=== PATIENT | male | born 1970 | race Hispanic/Latino ===

== ENCOUNTER → 2018-09-01 | Outpatient (CLI) | payer OTHER | END | disposition home or self-care (01) | LOC: RAH 10:59 | PROVIDERS: ATTEND Nurse Practitioner Adult Health | DX: M50.31 Other cervical disc degeneration, high cervical region (principal); M48.02 Spinal stenosis, cervical region | CPT/HCPCS: 72141 ==

== ENCOUNTER → 2018-10-30 | Outpatient (CLI) | payer OTHER ==
[~2018-10-30] MED LIST: LISI10TA7 PO
== END | disposition home or self-care (01) ==
LOC: RAH 08:53
PROVIDERS: ATTEND Neurological Surgery
DX: M43.22 Fusion of spine, cervical region (principal)
CPT/HCPCS: 72040

== ENCOUNTER 2018-11-01 10:34 | Emergency (ER) | payer OTHER ==
[2018-11-01 10:57] LABS: BASOPHILS % (AUTO) 2.5 % (0.0-5.0); HEMATOCRIT 36.7 % (42-54); MEAN CORPUSCULAR HEMOGLOBIN 24.1 pg (27.0-33.0); MEAN CORPUSCULAR HGB CONC 31.8 g/dL (32.0-36.0); MEAN CORPUSCULAR VOLUME 75.7 fL (79-99); NEUTROPHILS % (AUTO) 60.5 % (40.0-77.0); PLATELET COUNT (AUTO) 288 K/uL (130-400); RED BLOOD CELL COUNT(AUTO) 4.85 MIL/uL (4.50-6.20); RED CELL DISTRIBUTION WIDTH 17.2 % (11.0-15.5); WHITE BLOOD COUNT (AUTO) 5.4 K/uL (4.8-10.8)
[2018-11-01 11:09] LABS: POTASSIUM 4.4 mmol/L (3.5-5.1)
[2018-11-01 11:15] LABS: ALBUMIN 3.6 g/dL (3.5-5.0); B-TYPE NATRIURETIC PEPTIDE 42 pg/mL (0-100); BILIRUBIN,DIRECT 0.2 mg/dL (0.0-0.3); BILIRUBIN,TOTAL 0.8 mg/dL (0.2-1.0); TOTAL PROTEIN, SERUM 7.4 g/dL (6.0-8.3)
[2018-11-01] MEDS ORDERED: SODIUM CHLORIDE 0.9% 1000ML 1,000 ML IV ONE (12:17)
[2018-11-01] MEDS ORDERED: IOHEXOL 350 MG/ML 100ML INFUS..BTL IV ONE (12:18)
== END 2018-11-01 16:25 | disposition home or self-care (01) ==
LOC: EDH 10:34
DX: R06.00 Dyspnea, unspecified (principal); R94.31 Abnormal electrocardiogram [ECG] [EKG]; I10 Essential (primary) hypertension; Z98.890 Other specified postprocedural states; Z88.0 Allergy status to penicillin; Z72.0 Tobacco use
CPT/HCPCS: 36415; 71046; 71275; 80048; 80076; 82550; 82948; 83605; 83880; 84484 ×2; 85025; 85378; 93005 ×2; 93970; 99285; J7030; Q9967